=== PATIENT | female | born 1975 | race Native Hawaiian/Other Pacific Islander ===

== ENCOUNTER 2016-10-06 18:59 | Emergency (ER) | payer MEDICAID ==
[2016-10-06 19:22] VITALS: BMI 21.4
[2016-10-06 19:26] VITALS: TEMP 98.3; O2SAT 100
[2016-10-06 20:28] LABS: HEMATOCRIT 36.3 % (36.0-48.0); MEAN CELL VOLUME 84.8 fL (80.0-105.0); MEAN CORPUSCULAR HEMOGLOBIN 28.7 pg (25.0-35.0); MEAN CORPUSCULAR HGB CONC 33.9 g/dl (31.0-37.0); MEAN PLATELET VOLUME 10.2 fl (7.0-11.0); RED CELL DISTRIBUTION WIDTH 13.3 % (11.5-14.5); WHITE BLOOD COUNT 5.5 10^3/ul (4.5-11.0)
[2016-10-06 20:30] LABS: ALB/GLOB RATIO 1.1 (1.1-1.8); ALKALINE PHOSPHATASE 41 U/L (38-133); ALT/SGPT 42 U/L (7-56); AST/SGOT 36 U/L (15-39); BILIRUBIN,TOTAL 0.6 mg/dL (0.2-1.3); BLOOD UREA NITROGEN 16 mg/dL (7-21); CALCIUM 8.7 mg/dL (8.4-10.5); CARBON DIOXIDE 25 mmol/L (21-33); CHLORIDE 101 mmol/L (98-107); GFR AFRICAN-AMERICAN > 60; GLUCOSE,RANDOM 89 mg/dL (70-110); POTASSIUM 3.8 mmol/L (3.6-5.0); SODIUM 136 mmol/L (132-148)
[2016-10-06 20:32] LABS: PH,URINE 6.5 (4.7-8.0); URINE BILIRUBIN NEGATIVE (NEGATIVE); URINE BLOOD LARGE (NEGATIVE); URINE GLUCOSE (UA) NEGATIVE (NEGATIVE); URINE KETONE NEGATIVE (NEGATIVE); URINE LEUKOCYTE ESTERASE TRACE Leu/uL (NEGATIVE); URINE PROTEIN >=300 mg/dL (<30 mg/dL); URINE UROBILINOGEN 0.2 E.U./dL (<1 E.U./dL)
[2016-10-06 20:35] LABS: INR 0.99 (0.93-1.08); PARTIAL THROMBOPLASTIN TIME 26.1 Seconds (23.7-30.8)
[2016-10-06 20:40] LABS: URINE APPEARANCE BLOODY (CLEAR); URINE COLOR RED (YELLOW)
[2016-10-06 20:52] LABS: URINE BACTERIA SMALL (NEG); URINE RBC TNTC /hpf (0-2); URINE WBC TNTC /hpf (0-6)
--- NOTE | 2016-10-06 21:37 | ED PDOC ---
Arrival/HPI - General Chief Complaint: Female Genitourinary Time Seen by Provider: 10/06/16 19:45 Historian: Patient - History of Present Illness Narrative History of Present Illness (Text): 10/06/16 19:45 A 40 year old female, who denies any past medical history, presents to the emergency department complaining of vaginal bleeding earlier today. Patient reports the notice the bleeding after running for her daughter. Patient denies any abdominal pain. Patient states she may be possibly . She notes her last menstrual cycle was on the end of 08/2016. Patient states slight and short episodes of spotting on 09/2016 but no true period. Patient denies any fever, chills, current vaginal bleeding, urinary symptoms or any other complaints at this time. Time/Duration: Other Symptom Onset: Sudden Symptom Course: Resolved Quality: Other Activities at Onset: Rest Context: Home Past Medical History - Provider Review Nursing Documentation Reviewed: Yes - Infectious Disease Hx of Infectious Diseases: None - Pulmonary Hx Respiratory Disorders: No - Neurological Hx Neurological Disorder: No - HEENT Hx HEENT Disorder: No - Renal Hx Renal Disorder: No - Endocrine/Metabolic Hx Endocrine Disorders: No - Hematological/Oncological Hx Blood Disorders: No - Integumentary Hx Dermatological Disorder: No - Musculoskeletal/Rheumatological Hx Musculoskeletal Disorders: No - Gastrointestinal Hx Gastrointestinal Disorders: No - Genitourinary/Gynecological Hx Genitourinary Disorders: No - Psychiatric Hx Psychophysiologic Disorder: No Hx Substance Use: No - Surgical History Hx Section: Yes - Anesthesia Hx Anesthesia: No Hx Anesthesia Reactions: No Hx Malignant Hyperthermia: No Family/Social History - Physician Review Nursing Documentation Reviewed: Yes Family/Social History: Unknown Family HX Smoking Status: Never Smoked Hx Alcohol Use: No Hx Substance Use: No Allergies/Home Meds Allergies/Adverse Reactions: Allergies No Known Allergies Allergy (Verified 10/06/16 19:23) Review of Systems - Physician Review All systems were reviewed & negative as marked: Yes - Review of Systems Constitutional: absent: Fevers Gastrointestinal: absent: Abdominal Pain Genitourinary Female: Vaginal Bleeding. absent: Urine Output Changes Physical Exam Vital Signs Reviewed: Yes Vital Signs Temp Pulse Resp BP Pulse Ox 10/06/16 19:23 98.3 F 61 16 126/81 100 Temperature: Afebrile Blood Pressure: Normal Pulse: Regular Respiratory Rate: Normal Appearance: Positive for: Well-Appearing, Non-Toxic, Comfortable Pain Distress: None Mental Status: Positive for: Alert and Oriented X 3 - Systems Exam Head: Present: Atraumatic, Normocephalic Pupils: Present: PERRL Extroacular Muscles: Present: EOMI Conjunctiva: Present: Normal Mouth: Present: Moist Mucous Membranes Neck: Present: Normal Range of Motion Respiratory/Chest: Present: Clear to Auscultation, Good Air Exchange. No: Respiratory Distress, Accessory Muscle Use Cardiovascular: Present: Regular Rate and Rhythm, Normal S1, S2. No: Murmurs Abdomen: Present: Normal Bowel Sounds. 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 No: Vaginal Discharge, Vaginal Lesions, Adenexal Tenderness, Adenexal Mass, Cervical Motion Tendernes, Odor Back: Present: Normal Inspection Upper Extremity: Present: Normal Inspection. No: Cyanosis, Edema Lower Extremity: Present: Normal Inspection. No: Edema Neurological: Present: GCS=15, CN II-XII Intact, Speech Normal Skin: Present: Warm, Dry, Normal Color. No: Rashes Psychiatric: Present: Alert, Oriented x 3, Normal Insight, Normal Concentration Medical Decision Making ED Course and Treatment: 10/06/16 19:45 Impression: A 40 year old female who is possibly with some vaginal bleeding earlier today. Plan: -- Labs -- Urinalysis -- Transvaginal Ultrasound -- Reassess and disposition Progress Notes: 10/06/16 23:24 Reviewed sono, Transvaginal US shows: Uterus: Uterus is difficult to identify due to incomplete bladder distention. Initial transit abdominal imaging, the uterus measures approximately 7.2 x 4.3 x 5.5 cm. There is a gestational sac in the uterus. Delayed transabdominal imaging shows uterus to measure approximately 10 x 5 x 5.7 cm. Sac like structure is seen in the region of the cervix. Adnexa: Incomplete bladder distention limits evaluation of the adnexa. IMPRESSION: Limited transabdominal study secondary to incomplete bladder distention, findings suggest in progress Uterus: Endometrium measures approximately 9 mm in width. No intrauterine gestation is seen in the endometrium. Right ovary: Right ovary measures approximately 2.3 x 1.75 x 1.83 cm. There is a dominant follicle.There is expected blood flow on Doppler imaging Left ovary: Left ovary measures approximately 2.90 x 1.10 x 1.06 cm. There is expected blood flow on Doppler imagin. Fluid: There is a small amount of free fluid. IMPRESSION: No intrauterine or ectopic gestation 10/07/16 00:[address] Thompson OBGYMelissa agricultural production engineer, who is aware and agrees with plan. States pt can f/u outpt with him within the week. - Lab Interpretations Lab Results: 10/06/16 19:40 10/06/16 19:40 Lab Results 10/06/16 20:26: Blood Type B POSITIVE, Antibody Screen Negative, BBK History Checked No verified bt 10/06/16 19:40: WBC 5.5, RBC 4.28, Hgb 12.3, Hct 36.3, MCV 84.8, MCH 28.7, MCHC 33.9, RDW 13.3, Plt Count 163, MPV 10.2, PT 10.7, INR 0.99, APTT 26.1, Sodium 136, Potassium 3.8, Chloride 101, Carbon Dioxide 25, Anion Gap 14, BUN 16, Creatinine 0.7, Est GFR ( Amer) > 60, Est GFR (Non-Af Amer) > 60, Random Glucose 89, Calcium 8.7, Total Bilirubin 0.6, AST 36, ALT 42, Alkaline Phosphatase 41, Total Protein 8.0, Albumin 4.2, Globulin 3.9, Albumin/Globulin Ratio 1.1, Beta HCG, Quant 5866.70 H, Urine Color Red, Urine Appearance Bloody, Urine pH 6.5, Ur Specific [place] 1.020, Urine Protein >=300 H, Urine Glucose ( UA) Negative, Urine Ketones Negative, Urine Blood Large H, Urine Nitrate Positive H, Urine Bilirubin Negative, Urine Urobilinogen 0.2, Ur Leukocyte Esterase Trace H, Urine RBC Tntc, Urine WBC Tntc, Ur Epithelial Cells 1 - 3, Urine Bacteria Small, Urine HCG, Qual Positive I have reviewed the lab results: Yes - RAD Interpretation Radiology Orders: 10/06/16 20:04 OB TRANSVAGINAL [US] Stat - EKG Interpretation Interpreted by ED Physician: Yes - Scribe Statement The provider has reviewed the documentation as recorded by the Scribe Dimpal Contreras Provider Joby Attestation: All medical record entries made by the Joby were at my direction and personally dictated by me. I have reviewed the chart and agree that the record accurately reflects my personal performance of the history, physical exam, medical decision making, and the department course for this patient. I have also personally directed, reviewed, and agree with the discharge instructions and disposition. Disposition/Present on Arrival - Present on Arrival Any Indicators Present on Arrival: No History of DVT/PE: No History of Uncontrolled Diabetes: No Urinary Catheter: No History of Decub. Ulcer: No History Surgical Site Infection Following: None - Disposition Have Diagnosis and Disposition been Completed?: Yes Diagnosis: Vaginal bleeding, Miscarriage, UTI (urinary tract infection) Disposition: HOME/ ROUTINE Disposition Time: 00:05 Patient Plan: Discharge Patient Problems: Current Active Problems Problem Status Diagnosed Miscarriage Acute UTI (urinary tract infection) Acute Vaginal bleeding Acute Condition: GOOD Discharge Instructions (ExitCare): Spontaneous Miscarriage (ED) Additional Instructions: Avoid any strenuous physical activity.Drink plenty of liquids/Take meds as prescribed/ Follow-up with facsimile operator, Dr. Thompson, within the next 24- 48 hours. If any heavy vaginal bleeding, dizziness, return to Emergency room. Prescriptions: Cephalexin [cephalexin] 500 mg PO BID #10 cap Referrals: Jeferson Thompson MD [Staff Provider] - [facility]] - Follow up with primary
--- NOTE | 2016-10-06 22:01 | US ---
EXAM: US First Trimester, Transabdominal CLINICAL HISTORY: 40 years old, female; Pain; complicated by abdominal or pelvic pain; Right lower quadrant; First trimester; Gestational age or lmp: ? ; Additional info: Bleeding ADDITIONAL HISTORY: The patient was actively bleeding during the study. The patient went to the restroom during the study. TECHNIQUE: Real-time transabdominal obstetrical ultrasound of the maternal pelvis and a first trimester with image documentation. COMPARISON: There are no prior studies for comparison. FINDINGS: Uterus: Uterus is difficult to identify due to incomplete bladder distention. Initial transit abdominal imaging, the uterus measures approximately 7.2 x 4.3 x 5.5 cm. There is a gestational sac in the uterus. Delayed transabdominal imaging shows uterus to measure approximately 10 x 5 x 5.7 cm. Sac like structure is seen in the region of the cervix. Adnexa: Incomplete bladder distention limits evaluation of the adnexa. IMPRESSION: Limited transabdominal study secondary to incomplete bladder distention, findings suggest in progress EXAM: US , Transvaginal CLINICAL HISTORY: 40 years old, female; Pain; complicated by abdominal or pelvic pain; Right lower quadrant; First trimester; Gestational age or lmp: ? ; Additional info: Bleeding TECHNIQUE: Real-time transvaginal obstetrical ultrasound of the maternal pelvis and a first trimester with image documentation. Transvaginal imaging was used for better evaluation of the fetus and adnexa. EXAM DATE/TIME: 10/06/2016 8:04 PM COMPARISON: There are no prior studies for comparison. FINDINGS: Uterus: Endometrium measures approximately 9 mm in width. No intrauterine gestation is seen in the endometrium. Right ovary: Right ovary measures approximately 2.3 x 1.75 x 1.83 cm. There is a dominant follicle.There is expected blood flow on Doppler imaging Left ovary: Left ovary measures approximately 2.90 x 1.10 x 1.06 cm. There is expected blood flow on Doppler imaging Fluid: There is a small amount of free fluid. IMPRESSION: No intrauterine or ectopic gestation Followup with serial beta-hCGs and sonography advised
[2016-10-07 00:41] VITALS: PULSE 72; RESP 18
[2016-10-07 00:45] VITALS: BP 112/71
== END 2016-10-07 00:45 | disposition home or self-care (01) ==
LOC: ED 18:59 → MERGE 18:59 → ED 10-07 00:45
DX: O03.9 Complete or unspecified spontaneous abortion without complication (principal); N93.9 Abnormal uterine and vaginal bleeding, unspecified; O23.41 Unspecified infection of urinary tract in pregnancy, first trimester; Z3A.00 Weeks of gestation of pregnancy not specified

== ENCOUNTER 2017-12-30 23:56 | Emergency (ER) | payer MEDICAID ==
[2017-12-30 23:57] VITALS: BMI 21.4
--- NOTE | 2017-12-31 00:40 | ED PDOC ---
Arrival/HPI - General Chief Complaint: Female Genitourinary Time Seen by Provider: 12/31/17 00:24 Historian: Patient - History of Present Illness Narrative History of Present Illness (Text): 12/31/17 00:35 A 42 year old female, , presents to the emergency department with complaint of vaginal bleeding. The patient notes that she is about 2 months and has not yet seen an [facility] to have an ultrasound, but has an appointment scheduled in 2 weeks. She states that she began bleeding about 2 hours prior to arrival. She states that the bleeding is less than a normal period and did notice white discharge with the bleeding. She also states that she had a miscarriage last year. The patient notes that last night she experienced abdominal pain and body aches, but currently denies any of those symptoms. Patient denies fevers, chills, headache, dizziness, chest pain, shortness of breath, dyspnea on exertion, cough, abdominal pain, nausea, vomiting, diarrhea, back pain, neck pain, urinary/bowel changes, or any other complaint. PMD: Dr. Shawn Sanchez Time/Duration: 1-3 hours Symptom Onset: Sudden Symptom Course: Unchanged Activities at Onset: Rest, Light Context: Home Past Medical History - Provider Review Nursing Documentation Reviewed: Yes - Infectious Disease Hx of Infectious Diseases: None - Pulmonary Hx Respiratory Disorders: No - Neurological Hx Neurological Disorder: No - HEENT Hx HEENT Disorder: No - Renal Hx Renal Disorder: No - Endocrine/Metabolic Hx Hypothyroidism: Yes - Hematological/Oncological Hx Blood Disorders: No - Integumentary Hx Dermatological Disorder: No - Musculoskeletal/Rheumatological Hx Musculoskeletal Disorders: No - Gastrointestinal Hx Gastrointestinal Disorders: No - Genitourinary/Gynecological Hx Genitourinary Disorders: No - Psychiatric Hx Psychophysiologic Disorder: No Hx Substance Use: No - Surgical History Hx Section: Yes - Anesthesia Hx Anesthesia: No Hx Anesthesia Reactions: No Hx Malignant Hyperthermia: No Family/Social History - Physician Review Nursing Documentation Reviewed: Yes Family/Social History: No Known Family HX Smoking Status: Never Smoked Hx Alcohol Use: No Hx Substance Use: No Allergies/Home Meds Allergies/Adverse Reactions: Allergies No Known Allergies Allergy (Verified 10/06/16 19:23) Home Medications: Home Meds Medication Instructions Recorded Confirmed Amoxicillin/Clavulanate [Augmentin 1 tab PO BID 12/31/17 12/31/17 500 MG-125 MG] Levothyroxine [Synthroid] 25 mcg PO DAILY 12/31/17 12/31/17 Vit No.126/Iron/Folic 1 tab PO DAILY 12/31/17 12/31/17 [Prenavite] Review of Systems - Physician Review All systems were reviewed & negative as marked: Yes - Review of Systems Constitutional: absent: Fevers, Night Sweats Respiratory: absent: SOB, Cough Cardiovascular: absent: Chest Pain, [place] Gastrointestinal: absent: Abdominal Pain, Stool Changes, Diarrhea, Nausea, Vomiting Genitourinary Female: Vaginal Bleeding. absent: Urine Output Changes Musculoskeletal: absent: Back Pain, Neck Pain Neurological: absent: Headache, Dizziness Physical Exam Vital Signs Reviewed: Yes Vital Signs Temp Pulse Resp BP Pulse Ox 12/31/17 03:29 98.2 F 89 17 101/68 98 12/31/17 00:06 98.9 F 99 H 19 115/83 96 Temperature: Afebrile Blood Pressure: Normal Pulse: Tachycardic Respiratory Rate: Normal Appearance: Positive for: Well-Appearing, Non-Toxic, Comfortable Pain Distress: None Mental Status: Positive for: Alert and Oriented X 3 - Systems Exam Head: Present: Atraumatic, Normocephalic Pupils: Present: PERRL Extroacular Muscles: Present: EOMI Conjunctiva: Present: Normal Mouth: Present: Moist Mucous Membranes Neck: Present: Normal Range of Motion Respiratory/Chest: Present: Clear to Auscultation, Good Air Exchange. No: Respiratory Distress, Accessory Muscle Use Cardiovascular: Present: Regular Rate and Rhythm, Normal S1, S2. No: Murmurs Abdomen: No: Tenderness, Distention, Peritoneal Signs Back: Present: Normal Inspection Upper Extremity: Present: Normal Inspection, NORMAL PULSES (strong peripheral pulses). No: Cyanosis, Edema Lower Extremity: Present: Normal Inspection. No: Edema Neurological: Present: GCS=15, CN II-XII Intact, Speech Normal Skin: Present: Warm, Dry, Normal Color. No: Rashes Psychiatric: Present: Alert, Oriented x 3, Normal Insight, Normal Concentration Medical Decision Making ED Course and Treatment: 12/31/17 00:41 Impression: A 42 year old female presents to the emergency department with complaint of vaginal bleeding 2 hours prior to arrival. Plan: -- Transvaginal Ultrasound -- Urinalysis -- Labs -- Reassess and disposition Progress Notes: US , Transvaginal Dictated and Authenticated by: Breezy Escobar MD 12/31/2017 3:13 AM Eastern Time ([place] & [place]) EXAM DATE/TIME:12/31/2017 12:33 AM CLINICAL HISTORY: 42 years old, female; Pain; complicated by abdominal or pelvic pain; Lower; First trimester; Gestational age or lmp: 10/17/2017; ; Additional info: Vag bleed, pain TECHNIQUE: Real-time transvaginal obstetrical ultrasound of the maternal pelvis and a first trimester with image documentation. Transvaginal imaging was used for better evaluation of the fetus and adnexa. COMPARISON: US - OB TRANSVAGINAL 2016-10-06 20:38 FINDINGS: Gestation: A single intrauterine gestation is identified. [place] rump measurement is 4.1 cm. Estimated gestational age by crown-rump measurements is 11 weeks 0 days.Active heart motion is demonstrated at 176 beats per minute. Placenta/amniotic fluid: Amniotic fluid volume is appropriate. Uterus/cervix: Unremarkable. No myometrial mass. Ovaries: Unremarkable. No mass. Normal low impedance arterial flow. Free fluid: No free fluid. IMPRESSION: No acute findings. 12/31/17 03:24; Checked patient's blood type with blood bank. Patient's blood type is B positive. On re-evaluation, patient feels better and is in no acute distress. I have discussed the results and plan with the patient, who expresses understanding. Patient in agreement with plan to be discharged home. Patient is stable for discharge. Patient was instructed to follow up with physician or return if symptoms worsen or new concerning symptoms arise. - Lab Interpretations Lab Results: 12/31/17 00:42 12/31/17 00:42 Lab Results 12/31/17 00:42: Beta HCG, Quant 201714.00 H 12/31/17 00:42: Urine Color Straw, Urine Appearance Clear, Urine pH 6.5, Ur Specific [place] 1.010, Urine Protein Negative, Urine Glucose (UA) Negative, Urine Ketones Negative, Urine Blood Large H, Urine Nitrate Negative, Urine Bilirubin Negative, Urine Urobilinogen 0.2, Ur Leukocyte Esterase Negative, Urine RBC 5 - 10, Urine WBC 1 - 3, Ur Epithelial Cells 4 - 5, Urine Bacteria Small, Urine HCG, Qual Positive 12/31/17 00:42: Sodium 138, Potassium 4.0, Chloride 103, Carbon Dioxide 23, Anion Gap 16, BUN 8, Creatinine 0.4 L, Est GFR ( Amer) > 60, Est GFR (Non -Af Amer) > 60, Random Glucose 115 H, Calcium 9.0, Total Bilirubin 0.5, AST 33, ALT 38, Alkaline Phosphatase 50, Total Protein 8.1, Albumin 4.2, Globulin 3.9, Albumin/Globulin Ratio 1.1 12/31/17 00:42: WBC 8.5 D, RBC 4.36, Hgb 12.6, Hct 36.5, MCV 83.7, MCH 28.9, MCHC 34.5, RDW 14.0, Plt Count 178, MPV 9.4, Gran % 76.2 H, Lymph % (Auto) 14.7 L, [place] % (Auto) 8.0 H, Eos % (Auto) 0.9 L, Baso % (Auto) 0.2, Gran # 6.47, Lymph # (Auto) 1.3, [place] # (Auto) 0.7 H, Eos # (Auto) 0.1, Baso # (Auto) 0.02 I have reviewed the lab results: Yes - RAD Interpretation Radiology Orders: 12/31/17 00:33 OB TRANSVAGINAL [US] Stat - Scribe Statement The provider has reviewed the documentation as recorded by the Scribe Claribel Blair Provider Scribe Attestation: All medical record entries made by the Scribe were at my direction and personally dictated by me. I have reviewed the chart and agree that the record accurately reflects my personal performance of the history, physical exam, medical decision making, and the department course for this patient. I have also personally directed, reviewed, and agree with the discharge instructions and disposition. Disposition/Present on Arrival - Present on Arrival Any Indicators Present on Arrival: No History of DVT/PE: No History of Uncontrolled Diabetes: No Urinary Catheter: No History of Decub. Ulcer: No History Surgical Site Infection Following: None - Disposition Have Diagnosis and Disposition been Completed?: No Diagnosis: Threatened miscarriage in early Disposition: HOME/ ROUTINE Disposition Time: 04:44 Patient Plan: Discharge Condition: FAIR Discharge Instructions (ExitCare): Threatened Miscarriage Referrals: Sanchez,Paula V, DO [Primary Care Provider] - Follow up with primary Forms: [email or web address] ([place])
[2017-12-31 01:00] LABS: BASO # 0.02 K/mm3 (0.0-2.0); BASO % 0.2 % (0.0-3.0); EOS # 0.1 (0.0-0.7); EOS % 0.9 % (1.5-5.0); GRAN # 6.47 (1.4-6.5); GRAN % 76.2 % (50.0-68.0); HEMOGLOBIN 12.6 g/dL (12.0-16.0); LYMPH # 1.3 (1.2-3.4); LYMPH % 14.7 % (22.0-35.0); MEAN CELL VOLUME 83.7 fl (80.0-105.0); MEAN CORPUSCULAR HEMOGLOBIN 28.9 pg (25.0-35.0); MEAN CORPUSCULAR HGB CONC 34.5 g/dl (31.0-37.0); MEAN PLATELET VOLUME 9.4 fl (7.0-11.0); MONO # 0.7 (0.1-0.6); PH,URINE 6.5 (4.7-8.0); RBC 4.36 10^6/uL (3.5-6.1); URINE BILIRUBIN NEGATIVE (NEGATIVE); URINE BLOOD LARGE (NEGATIVE); URINE GLUCOSE (UA) NEGATIVE (NEGATIVE); URINE LEUKOCYTE ESTERASE NEGATIVE Leu/uL (NEGATIVE); URINE PROTEIN NEGATIVE mg/dL (<30 mg/dL); URINE UROBILINOGEN 0.2 E.U./dL (<1 E.U./dL); WHITE BLOOD COUNT 8.5 10^3/ul (4.5-11.0)
[2017-12-31 01:07] LABS: ALB/GLOB RATIO 1.1 (1.1-1.8); ALBUMIN 4.2 g/dL (3.0-4.8); ALT/SGPT 38 U/L (7-56); AST/SGOT 33 U/L (14-36); BLOOD UREA NITROGEN 8 mg/dL (7-21); GFR AFRICAN-AMERICAN > 60; GFR NON-AFRICAN AMERICAN > 60; HCG,QUALITATIVE URINE POSITIVE (NEGATIVE); URINE APPEARANCE CLEAR (CLEAR); URINE COLOR STRAW (YELLOW)
[2017-12-31 01:37] LABS: URINE BACTERIA SMALL (NEG)
[2017-12-31 03:30] VITALS: BP 101/68; PULSE 89; RESP 17; TEMP 98.2; O2SAT 98
--- NOTE | 2017-12-31 09:58 | US ---
PROCEDURE: First trimester ultrasound HISTORY: vag bleed,pain COMPARISON: None available. TECHNIQUE: Standard protocol for this study/examination. FINDINGS: LMP: 10/17/2017 Prior examinations from the current : None TECHNIQUE: Real-time 2D imaging, duplex and color Doppler. FINDINGS: Cardiac activity: Present Rate: 176 BPM Measurements: [place] rump length: 4.01 cm Gestational age based on CRL 10 weeks 6 days Gestational age 11 weeks 1 day based on gestational sac measurement 5.31 cm Gestational age derived from LMP: 10 weeks 5 days ALMA based on LMP: 07/24/2018 ALMA based on biometry: 07/22/2018 Gestational concordance documented Yolk sac identified Uterus: Unremarkable. Cervix: No Cervical abnormalities: Negative examination for cervical dilatation or effacement. Closed cervix measuring 5.3 cm Subchorionic hemorrhage: None UTERUS: 6.8 x 9.6 x 11.8 cm. ADNEXA: Right: 2.1 x 2.7 x 2.8 cm. Normal Doppler arterial waveform documented. Left: 2.1 x 2.4 x 3.1 cm. Normal Doppler arterial waveform documented Fluid in the cul-de-sac: None IMPRESSION: Eleven weeks live intrauterine gestation. Gestational concordance documented. Concordant results (preliminary interpretation) provided by [facility]. Procedure Completed: 02:00 Preliminary ([facility]) Report: Dictated and Authenticated: 03:13 Final Interpretation: 09:57
== END 2017-12-31 03:30 | disposition home or self-care (01) ==
LOC: ED 23:56
DX: O20.0 Threatened abortion (principal); Z3A.11 11 weeks gestation of pregnancy